=== PATIENT | male | born 1950 | race Native Hawaiian/Other Pacific Islander ===

== ENCOUNTER 2017-03-24 12:20 | Observation (INO) | payer OTHER ==
[~2017-03-24] VITALS: Ht 182.9 cm; Wt 84.4 kg
[2017-03-24 13:15] VITALS: BP 168/81; TEMP 96.8; Ht 182.9 cm; Wt 84.4 kg
[2017-03-24 14:19] LABS: PLATELET COUNT 227 K/uL (142-355)
[2017-03-24 14:35] LABS: SODIUM 139 mmol/L (136-145)
[2017-03-24 15:02] LABS: PARTIAL THROMBOPLASTIN TIME 26.5 SECONDS (24.5-33.6)
[2017-03-24 16:00] VITALS: BP 168/81; TEMP 96.8
[2017-03-24 20:00] VITALS: BP 149/75; TEMP 97.8
[2017-03-25] VITALS: BP 123/67; TEMP 98.2
[2017-03-25 04:00] VITALS: BP 124/70; TEMP 98.1
[2017-03-25 06:29] LABS: PLATELET COUNT 206 K/uL (142-355)
[2017-03-25 06:48] LABS: POTASSIUM 3.9 mmol/L (3.6-5.2); SODIUM 138 mmol/L (136-145)
[2017-03-25 08:00] VITALS: BP 134/74; TEMP 98.9
[2017-03-25 12:01] VITALS: BP 131/69; TEMP 98.6
== END 2017-03-25 16:45 | disposition home or self-care (01) ==
LOC: MED/SURG 12:20
PROVIDERS: Internal Medicine; ADMIT Internal Medicine
DX: R20.0 Anesthesia of skin (principal); N20.0 Calculus of kidney; Z85.46 Personal history of malignant neoplasm of prostate; I10 Essential (primary) hypertension; R53.1 Weakness; R42 Dizziness and giddiness
CPT/HCPCS: 36591; 80053; 82550; 84443; 84484; 85027; 85379; 85610; 85730; 93005; 93306; 99220; G0378; G0379; J1644

== ENCOUNTER 2019-07-20 09:00 | Outpatient (CLI) | payer OTHER | END 2019-07-20 19:32 | disposition home or self-care (01) | LOC: US 09:00 | DX: Z13.820 Encounter for screening for osteoporosis (principal); Z13.6 Encounter for screening for cardiovascular disorders; M81.0 Age-related osteoporosis without current pathological fracture; Z84.89 Family history of other specified conditions ==

== ENCOUNTER 2020-06-08 08:17 | Outpatient (CLI) | payer OTHER ==
[2020-06-08 08:54] LABS: POTASSIUM 4.1 mmol/L (3.6-5.2)
[2020-06-08 09:53] LABS: PLATELET COUNT 255 K/uL (142-355)
== END 2020-06-08 19:44 | disposition home or self-care (01) ==
LOC: LABW 08:17
PROVIDERS: Internal Medicine
DX: I10 Essential (primary) hypertension (principal)
CPT/HCPCS: 36415; 80053; 80061; 81000; 84439; 84443; 85027

== ENCOUNTER 2020-11-07 08:18 | Outpatient (CLI) | payer OTHER ==
[2020-11-07 08:55] LABS: PLATELET COUNT 308 K/uL (142-355)
[2020-11-07 09:14] LABS: POTASSIUM 4.8 mmol/L (3.6-5.2); SODIUM 141 mmol/L (136-145)
== END 2020-11-07 19:35 | disposition home or self-care (01) ==
LOC: LABW 08:18
PROVIDERS: ATTEND Internal Medicine
DX: Z00.00 Encounter for general adult medical examination without abnormal findings (principal); Z12.5 Encounter for screening for malignant neoplasm of prostate; N40.0 Benign prostatic hyperplasia without lower urinary tract symptoms; Z79.899 Other long term (current) drug therapy
CPT/HCPCS: 36415; 80053; 80061; 81000; 84153; 84443; 85027

== ENCOUNTER 2020-11-14 14:41 | Outpatient (CLI) | payer OTHER | END 2020-11-14 19:28 | disposition home or self-care (01) | LOC: RESP 14:41 | PROVIDERS: ATTEND Specialist | DX: Z01.810 Encounter for preprocedural cardiovascular examination (principal); Z91.89 Other specified personal risk factors, not elsewhere classified; I10 Essential (primary) hypertension ==

== ENCOUNTER 2020-11-21 09:03 | Outpatient (CLI) | payer OTHER ==
[~2020-11-21] VITALS: Ht 180.3 cm; Wt 86.6 kg
== END 2020-11-21 20:42 | disposition home or self-care (01) ==
LOC: NM 09:03
PROVIDERS: ATTEND Specialist
DX: Z01.810 Encounter for preprocedural cardiovascular examination (principal); R26.89 Other abnormalities of gait and mobility; Z91.89 Other specified personal risk factors, not elsewhere classified
CPT/HCPCS: A9500; J2785

== ENCOUNTER 2021-07-03 08:09 | Outpatient (CLI) | payer OTHER ==
[2021-07-03 08:37] LABS: PLATELET COUNT 260 K/uL (142-355)
[2021-07-03 09:08] LABS: POTASSIUM 4.2 mmol/L (3.6-5.2); SODIUM 141 mmol/L (136-145)
== END 2021-07-03 20:02 | disposition home or self-care (01) ==
LOC: LABW 08:09
PROVIDERS: ATTEND Internal Medicine
DX: I10 Essential (primary) hypertension (principal); Z12.5 Encounter for screening for malignant neoplasm of prostate; N40.0 Benign prostatic hyperplasia without lower urinary tract symptoms
CPT/HCPCS: 36415; 80053; 80061; 81000; 84153; 84439; 84443; 85027

== ENCOUNTER 2022-05-30 08:12 | Outpatient (CLI) | payer OTHER | END 2022-05-30 19:09 | disposition home or self-care (01) | LOC: LABW 08:12 | PROVIDERS: ATTEND Urology | DX: C61 Malignant neoplasm of prostate (principal); N52.8 Other male erectile dysfunction; I10 Essential (primary) hypertension | CPT/HCPCS: 81000; 84153; 84439 ==

== ENCOUNTER 2023-06-19 08:07 | Outpatient (CLI) | payer OTHER ==
[2023-06-19 08:37] LABS: PLATELET COUNT 286 K/uL (142-355)
[2023-06-19 08:58] LABS: POTASSIUM 3.7 mmol/L (3.6-5.2)
== END 2023-06-19 19:43 | disposition home or self-care (01) ==
LOC: LABW 08:07
PROVIDERS: ATTEND Internal Medicine
DX: N52.8 Other male erectile dysfunction (principal); Z85.46 Personal history of malignant neoplasm of prostate; Z79.899 Other long term (current) drug therapy
CPT/HCPCS: 36415; 80053; 80061; 81002; 84153; 84443; 85027